=== PATIENT | female | born 1975 | race Two or more races ===

== ENCOUNTER → 2024-09-30 | Outpatient (CLI) | payer MEDICAID, SELFPAY ==
--- NOTE | 2024-09-30 13:15 | XR_ITS ---
Examination: Screening digital mammography, bilateral Computer aided detection 3-D breast Tomosynthesis, bilateral Date and time of exam: September 30, 2024 1301 hours Compared to mammograms dating to March 12, 2021 Indication: Screening Technique: Nonmagnified MLO, CC views of the breasts to been obtained, reconstructed from 3-D Tomosynthesis images. R2 computer aided detection program utilized for evaluation of suspicious masses and/or abnormal calcifications. 3-D Tomosynthesis images obtained. Findings: Scattered areas of fibroglandular density. Benign calcifications. 6 mm focal asymmetry upper outer left breast anterior depth IMPRESSION: BI-RADS Category 0: Incomplete: Need additional imaging evaluation 8 mm focal asymmetry upper outer left breast partially indistinct margins, recommend follow-up spot tomographic views of this asymmetry as well as bilateral breast sonography to complete the workup
== END | disposition home or self-care (01) ==
PROVIDERS: PCP Specialist; Referring Provider Specialist; Visit Provider Specialist
DX: Z12.31 Encounter for screening mammogram for malignant neoplasm of breast (principal); R92.8 Other abnormal and inconclusive findings on diagnostic imaging of breast; N64.89 Other specified disorders of breast
CPT/HCPCS: 77063; 77067

== ENCOUNTER 2024-10-04 06:25 | Day surgery (SDC) | payer MEDICAID, SELFPAY ==
--- NOTE | 2024-10-03 10:13 | EKG_ITS ---
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
[2024-10-03 10:14] VITALS: BMI 32.0
[2024-10-03 11:34] LABS: Basophils % (Auto) 1 % (0-2.5); Eosinophils # (Auto) 0.1 Thou/mm3 (0.0-0.5); Eosinophils % (Auto) 2 % (0-10); Immature Granulocytes % (Auto) 0 % (0-0); Immature Granulocytes Auto 0.01 Thou/mm3 (0.00-0.00); Lymphocytes # (Auto) 2.5 Thou/mm3 (1.0-4.8); Lymphocytes % (Auto) 44 % (10-50); Mean Corpuscular HGB Conc 34.9 g/dl (31.0-37.0); Mean Corpuscular Hemoglobin 31.1 pg (25.0-35.0); Mean Corpuscular Volume 89 fL (80-100); Monocytes # (Auto) 0.4 Thou/mm3 (0.0-0.8); Monocytes % (Auto) 7 % (0-12); Neutrophils # (Auto) 2.7 Thou/mm3 (1.8-7.7); Neutrophils % (Auto) 47 % (37-80); Nucleated Red Blood Cell % 0 /100 WBC (0); Platelet Count 260 Thou/mm3 (140-440); RDW Standard Deviation 44.7 fL (36.4-46.3); Red Blood Count 4.83 Miln/mm3 (4.00-5.20); White Blood Count 5.7 Thou/mm3 (3.6-11.0)
[2024-10-03 11:49] LABS: Anion Gap 7 (7-16); BUN/Creatinine Ratio 14 Ratio (12-20); Blood Urea Nitrogen 10 mg/dL (9-23); Calcium 9.8 mg/dL (8.3-10.6); Carbon Dioxide 28.1 mMol/L (20.0-31.0); Chloride 105 mMol/L (98-107); Creatinine (Component) 0.7 mg/dL (0.6-1.3); Glucose 99 mg/dL (74-106); Osmolality,Calculated 278 (275-295); Potassium 4.6 mMol/L (3.4-5.1); Sodium 140 mMol/L (136-145); eGFR > 60 See Note
[2024-10-03 11:51] LABS: INR 0.9 (0.9-1.3); Partial Thromboplastin Time 28.1 Seconds (22.0-36.0); Prothrombin Time 10.3 Seconds (9.0-12.2)
[2024-10-04] VITALS (7 sets, daily range): BP systolic 115–133; BP diastolic 66–93; PULSE 61–82; RESP 12–18; TEMP 36.3–36.4; O2SAT 98–100; BMI 31.8
--- NOTE | 2024-10-04 09:33 | SUR.PHASEI ---
pt received from OR in recovery bay 7. pt asleep but responds to voice, breathing unlabored on oxymask 8l, oral airway in place. v/s stable. pt dressing to right knee cdi. report received from Dr. Samuel and Valentina MCCORD.
--- NOTE | 2024-10-04 09:35 | PD.SUROPNT ---
Date of Procedure 10/04/24 Pre Op Diagnosis 1. Torn medial meniscus right knee joint 2. Torn lateral meniscus 3 degenerative joint disease changes 4 synovitis with medial plica Post Op Diagnosis Same Procedure 1. Partial medial meniscectomy 2. Partial lateral meniscectomy 3. Chondroplasty 4. Partial synovectomy including excision plica Findings Refer dictation Procedure Description The patient was given general endotracheal anesthesia. Once satisfactory anesthesia was achieved, tourniquet was placed on right upper thigh. Following that the part was thoroughly prepped and draped. After using Esmarch the tourniquet pressure was raised to 350 mmHg. A skin incision was made proximal to lateral tibial plateau and arthroscope was introduced in the usual fashion. Another a skin incision was made in suprapatellar pouch area and outlet was established. The findings were noted as below. In suprapatellar pouch area significant synovial tissue inflammation was present. Medial plica was present as well. The undersurface of patella showed grade 3/4 chondromalacia. The anterior femoral condyle showed grade 3 chondromalacia. Soft tissue impingement was present. The patellar tracking was checked and found to be good. The medial compartment showed grade 4 chondromalacia for medial tibial plateau and grade III/IV chondromalacia of medial femoral condyle. The medial meniscus showed degeneration and complex tear of the body and posterior horn Another skin incision was made proximal to medial tibial plateau and a probe was introduced and findings were confirmed. The anterior cruciate ligament was intact. The anterior drawer test was performed and found to be good. With the help of probe the integrity of ACL was tested and found to be good The lateral compartment showed grade III chondromalacia of lateral femoral condyle and tibial plateau. Lateral meniscus showed degeneration of the body and anterior horn. A basket was introduced in the medial compartment and torn part of the posterior horn and body of the medial meniscus was excised. A shaver was introduced and shaving of medial meniscus was performed. Soft tissue impingement was shaved off. Chondroplasty of the medial femoral condyle and medial tibial plateau was performed. The shaving of the body and anterior horn of lateral meniscus was done. The chondroplasty of the patella and and anterior femoral condyle was performed. The soft tissue impingement was shaved off. Medial shelf was excised. A partial synovectomy including excision of plica was performed. Copious amount of irrigation was used to irrigate the knee joint. All the debris were removed. 3-0 Prolene was used to close the wound. About 20 mL of quarter percent Marcaine along with 10 mg of Duramorph was injected. Patient tolerated procedure well. Estimated blood loss was about 5 mL. Prognosis in this case is guarded. Patient has significant chondromalacia and if the pain persists on long-term basis and pain is severe patient may be a candidate for knee replacement and patient is fully aware of that patient was taken to the recovery room in good condition. Anesthesia GETA Pathology / specimen None Estimated Blood Loss 1 Surgeon Ganga Chahal MD Surgical Staff Operation Date: 10/04/24 08:45 Case Staff Anesthesiologist: Amor Samuel
--- NOTE | 2024-10-04 09:58 | SUR.PHASEI ---
pt able to tolerate oral fluids without difficulty swallowing or nausea/vomiting.
--- NOTE | 2024-10-04 10:30 | SUR.PHASEII ---
pt awake and alert, breathing unlabored on room air. v/s stable. pt dressing to right knee cdi. pt able to ambulate to wheelchair with steady gait. d/c instructions given with Sandro in room using angular developer chalo fischer, all questions answered. pt d/c via wheelchair with all belongings.
--- NOTE | 2024-10-04 12:51 | ESHP_ITS ---
RE: CEDRICK ZALDIVAR : 1975 DATE OF ADMISSION: 10/04/2024 The patient came to my office this week for detailed preop history and physical examination. HISTORY OF PRESENT COMPLAINT: The patient has got pain, swelling, clicking, and locking of the right knee joint. This is going on for a long period of time. The patient graded intensity of pain to be 8 to 9/10. The patient is able to walk more than two or three blocks before she has to stop. Basically, her quality of life and activities of daily living is affected. PAST MEDICAL HISTORY: The patient denies history of diabetes mellitus, high blood pressure, asthma, seizure, chest pain, myocardial infarction, or bleeding disorder. The patient has high cholesterol. PAST SURGICAL HISTORY: Nil. DRUG HISTORY: The patient takes: 1. Hydrocodone. 2. Vitamin D2. 3. Atorvastatin. 4. Levothyroxine. FAMILY HISTORY AND SOCIAL HISTORY: The patient denies smoking, drinking, and is not working. PHYSICAL EXAMINATION: GENERAL: Normal built lady. VITAL SIGNS: Pulse 82 per minute, blood pressure 136/84. NECK: Soft. Supple. No masses felt. Trachea is centrally placed. CARDIOVASCULAR SYSTEM: First and second heart sound normal. No murmur heard. RESPIRATORY: Bilateral vesicular breath sounds. CHEST: Clear. ABDOMEN: Soft. No masses felt. Bowel sounds present. BREASTS: Not indicated in this case. EXTREMITIES: Right knee examination revealed mild swelling. There is 2+ tenderness. Active range of motion 0 to 120 degrees of flexion. Danna's test is positive. Drawer test and Emy test were negative. The patient walks with a limp. Neurovascularly, it is intact. DIAGNOSTIC DATA: MRI scan confirmed complex meniscal tear with degenerative joint disease changes and synovitis with increased joint fluid. Since the patient is symptomatic, therefore, right knee arthroscopy was discussed and advised. With the help of a knee model, pictures and posters, it was explained to her in detail. Risks of anesthesia was explained and that includes, but not limited to reaction to anesthetic agents, cardiac arrest, rarely it might be fatal. Risks with operation includes infection and if that happens, the patient may need further surgical procedure. Other risks include delayed healing, wound dehiscence, etc. No guarantee is given regarding the outcome of the procedure and/or relief of symptoms. Indeed, if one finds significant chondromalacia, the patient may not feel much improvement in pain and in that case, the patient may be a candidate for knee replacement. The patient is fully aware of that. The patient wants to proceed and give a try with arthroscopy. Appropriate lab work was done. Surgery booked for 10/04/2024. DT: 11:18:41 TT: 12:49:00 Ref: [id number] - TID: [id number]
== END 2024-10-04 10:30 | disposition home or self-care (01) ==
PROVIDERS: PCP Physician Assistant; Referring Provider Orthopaedic Surgery; Visit Provider Orthopaedic Surgery
PROC: (CPT 29870; principal; 2024-10-04 08:45)
DX: S83.241A Other tear of medial meniscus, current injury, right knee, initial encounter (principal); E78.00 Pure hypercholesterolemia, unspecified; M17.11 Unilateral primary osteoarthritis, right knee; M65.90 Unspecified synovitis and tenosynovitis, unspecified site; Z01.810 Encounter for preprocedural cardiovascular examination
CPT/HCPCS: 29875; 29880; 36415; 80048; 85025; 85610; 85730; 93005; A4217; A4649; J1100; J1885; J2250; J2274; J2405; J2704; J3010; J3490; J0665; J2270

== ENCOUNTER 2024-10-17 08:35 | Day surgery (SDC) | payer MEDICAID, SELFPAY ==
[2024-10-16 12:54] VITALS: BMI 32.3
[2024-10-17] VITALS (10 sets, daily range): BP systolic 92–125; BP diastolic 73–86; PULSE 70–75; RESP 13–19; TEMP 36.2–36.6; O2SAT 98–100; BMI 32.5
[2024-10-17] MEDS: SODIUM CHLORIDE 0.9% 500 ML 100 ML 20 ML IV (10:26)
[2024-10-17] MEDS: DiphenhydrAMINE INJ 50 MG/ML VIAL 25 MG IV (10:33)
[2024-10-17] MEDS: fentaNYL CIT INJ 50 mCg/ML AMP 2ML (ASD USE ONLY) IV ×2 (10:36→10:47)
[2024-10-17] MEDS: MIDAZOLAM INJ 1 MG/ML VIAL 2 ML (ASD USE ONLY) 2 MG IV ×2 (10:36→10:47)
[2024-10-17] MEDS: SIMETHICONE 40 MG/0.6 ML ORAL SYRINGE PO (10:40)
--- NOTE | 2024-10-17 10:56 | SUR.PHASEII ---
PT ARRIVED TO PACU, REPORT RECEIVED FROM FLEX CASTILLO. PT ABLE TO RESPOND TO VERBAL INSTRUCTIONS AND DRIFTED BACK TO SLEEP. NO ACUTE DISTRESS NOTED.
--- NOTE | 2024-10-17 11:19 | SUR.PHASEII ---
1115: Assumed care. Pt resting with no complaints voiced. Resp even, unlabored. VS stable.
--- NOTE | 2024-10-17 11:41 | SUR.PHASEII ---
1125: Pt more awake, alert. Sitting up tolerating po fluids with no difficulty swallowing and no n/v. 1135: Pt assisted to restroom. Ambulation steady.
--- NOTE | 2024-10-17 11:59 | SUR.PHASEII ---
1155: Pt discharged in stable conditionn.
== END 2024-10-17 11:55 | disposition home or self-care (01) ==
PROVIDERS: PCP Physician Assistant; Referring Provider Internal Medicine Gastroenterology; Visit Provider Internal Medicine Gastroenterology
PROC: 0DBE8ZX Excision of Large Intestine, Via Natural or Artificial Opening Endoscopic, Diagnostic (ICD-10-PCS; CPT 45380; principal; 2024-10-17 10:00)
DX: Z12.11 Encounter for screening for malignant neoplasm of colon (principal); K63.89 Other specified diseases of intestine; K64.3 Fourth degree hemorrhoids
CPT/HCPCS: 45380; 46221; A4649; J1200; J2250; J3010; J7040; A9270